=== PATIENT | male | born 1980 ===

== ENCOUNTER 2021-06-24 11:19 | Day surgery (SDC) | payer OTHER ==
[2021-06-24] MEDS ORDERED: PERCOCET 5-3251 EACH PO (18:17)
[2021-06-24] MEDS ORDERED: COLACE100 MG PO (18:17)
== END 2021-06-25 02:00 | disposition home or self-care (01) ==
LOC: CIR.AMB 11:19
PROVIDERS: ATTEND Surgery
DX: K64.8 Other hemorrhoids (principal); Z20.822 Contact with and (suspected) exposure to COVID-19